=== PATIENT | female | born 2005 | race Two or more races ===

== ENCOUNTER 2025-06-19 04:14 | Emergency (ER) | payer OTHER ==
[~2025-06-19] VITALS: Ht 177.8 cm; Wt 56.7 kg
[2025-06-19] MEDS ORDERED: ONDANSETRON HCL 2 MG/ML VIAL IM STA (04:35)
[2025-06-19] MEDS ORDERED: RINGERS SOLUTION,LACTATED 1,000 ML IV STA (04:35)
[2025-06-19] MEDS ORDERED: FAMOTIDINE/PF 20 MG/2 ML VIAL IV STA (04:36)
[2025-06-19] MEDS ORDERED: ONDANSETRON HCL 2 MG/ML VIAL ONE (04:45)
[2025-06-19] MEDS ORDERED: FAMOTIDINE/PF 20 MG/2 ML VIAL ONE (04:45)
[2025-06-19 05:27] LABS: BASO % 0.5 % (0.1-1.2); EOS # 0.66 (0.04-0.54); EOS % 5.2 % (0.7-7.0); LYMPH # 3.75 (1.18-3.74); LYMPH % 29.3 % (19.3-53.1); MEAN PLATELET VOLUME 10.50 fl (9.4-12.4); MONO # 0.77 (0.24-0.82); MONO % 6.0 % (4.7-12.5); NEUT # 7.52 (1.56-6.13); NEUT % 58.7 % (34.0-71.1); RED CELL DISTRIBUTION WIDTH 11.6 % (11.6-14.4)
[2025-06-19 05:43] LABS: ALT/SGPT 19.0 U/L (12-78); AST/SGOT 17.0 U/L (15-37); BILIRUBIN TOTAL 0.3 mg/dL (0.3-1.2); BUN CREA RATIO 10.0 (7.0-25.0); CKMB 1.3 NG/ML (0.5-3.6); CREATININE SERUM 0.72 mg/dL (0.55-1.02); GFR 104.35; GLOBULINA 3.1 G/DL (2.4-3.5); GLUCOSE FASTING 106.0 mg/dL (65-100); OSMOLALITY SERUM 283.0 MOSM/KG (275-295)
[2025-06-19] MEDS ORDERED: 0.9 % SODIUM CHLORIDE 1,000 ML IV SCH (07:45)
[2025-06-19 08:03] LABS: URINE APPEARANCE Clear; URINE BILIRRUBIN Negative (NEGATIVE); URINE BLOOD Negative; URINE COLOR Yellow; URINE GLUCOSE Negative (NEGATIVE); URINE KETONE Negative (NEGATIVE); URINE LEUKOCYTE Trace; URINE NITRATE Negative; URINE PROTEIN Negative (NEGATIVE); URINE UROBILINOGEN 0.2 E.U./dl
[2025-06-19 08:06] LABS: URINE BACTERIA 801.6 uL (0.0-1933); URINE EPITHELIAL CELLS 42.1 uL (0.0-38.8); URINE WBC 38.1 uL (0.0-23.2)
[2025-06-19 09:11] LABS: URINE CAST 0.00 uL (0.0-1.40); URINE RBC 1.9 uL (0.0-20.8)
[2025-06-19 09:13] LABS: COCAINE NEGATIVE (NEGATIVE); METHADONE NEGATIVE (NEGATIVE); OPIATES NEGATIVE (NEGATIVE); THC ( Cannabinoids) POSITIVE (NEGATIVE)
== END 2025-06-19 12:42 | disposition home or self-care (01) ==
LOC: ER 04:14
PROVIDERS: Physician Assistant Medical
DX: F12.929 Cannabis use, unspecified with intoxication, unspecified (principal); R55 Syncope and collapse